=== PATIENT | male | born 1985 | race Caucasian/White ===

== ENCOUNTER 2016-11-13 16:34 | Emergency (ER) | payer MEDICAID ==
[~2016-11-13] VITALS: Wt 113.5 kg
[~2016-11-13 16:34] MED LIST: DIAZ-90 PO; HYDR-906 PO; [UNRECOGNIZED DRUG - CODE]
[2016-11-13] MEDS ORDERED: HYDROCODONE/APAP (5/325) TAB PO ONE (17:00)
--- NOTE | 2016-11-13 17:30 | RADRPT ---
PROCEDURE: XR Chest. CLINICAL INDICATION: Chest pain. TECHNIQUE: Single frontal view. COMPARISON: 08/27/2014. FINDINGS: The lungs are clear. The heart size is normal. There is no pleural effusion. There is no pneumothorax. IMPRESSION: 1. Normal chest radiograph. 2. No change from 08/27/2014. RPTAT: QQ .Indio Martin MD, MD Date Time Electronically viewed and signed by .Indio Martin MD, MD on 11/13/2016 17:30 .R/
[2016-11-13] MEDS ORDERED: AZIT250T94 PO (17:40)
[2016-11-13] MEDS ORDERED: HYDR-906 PO (17:40)
--- NOTE | 2016-11-13 17:45 | ERD ---
ER Documentation Chief Complaint Date/Time DATE: 11/13/16 TIME: 17:43 Chief Complaint cough w cwp, nausea HPI This 31-year-old male presents with cough and left-sided chest wall pain with coughing and moving for the last 3-4 days. He has productive sputum. He has some mild nausea. Denies any sustained anterior chest pain. He has additional multiple complaints of numbness in his left foot and some intermittent numbness of left hand as well. Denies any weakness. Denies any blood, abdominal pain. ROS All systems reviewed and are negative except as per history of present illness. Medications Home Meds Active Scripts Azithromycin* (Zithromax*) 250 Mg Tablet, 250 MG PO .ZPACK DIRECTED, #6 TAB TAKE 500 MG (2 TABS) THE FIRST DAY THEN 250 MG (1 TAB) DAYS 2-5 Prov:KAROLYN OSWALD MD 11/13/16 Hydrocodone/Acetaminophen ([place] 5-325 Tablet) 1 Each Tablet, 1 EACH PO QID, # 10 TAB Prov:KAROLYN OSWALD MD 11/13/16 Diazepam* (Valium*) 5 Mg Tablet, 5 MG PO Q8, #10 TAB Prov:STONEY PAZ 04/08/16 Hydrocodone/Acetaminophen ([place] 5-325 Tablet) 1 Each Tablet, 1 TAB PO Q6H Y for PAIN, #20 TAB Prov:STONEY PAZ 04/08/16 Reported Medications Acetaminophen/Caffeine (Excedrin Asa Free Caplet) 1 Tab Tablet 12/29/10 Allergies Allergies: Coded Allergies: ibuprofen (Verified Allergy, Severe, 04/08/16) morphine (Verified Allergy, Unknown, tongue swollen, 04/08/16) PMhx/Soc History of Surgery: No Anesthesia Reaction: No Hx Neurological Disorder: No Hx Respiratory Disorders: No Hx Cardiac Disorders: No Hx Psychiatric Problems: No Hx Miscellaneous Medical Probl: Yes (MIGRAINE) Hx Alcohol Use: No Hx Substance Use: No Hx Tobacco Use: Yes Smoking Status: Current every day smoker Physical Exam Vitals Vital Signs Date Time Temp Pulse Resp B/P Pulse Ox O2 Delivery O2 Flow Rate FiO2 11/13/16 16:40 99.1 94 20 136/89 99 Physical Exam Const: [] Alert, [id number]. Head: Atraumatic Eyes: Normal Conjunctiva ENT: Normal External Ears, Nose and Mouth. TMs and oropharynx normal. Neck: Full range of motion..~ No meningismus. Resp: Clear to auscultation bilaterally. Tenderness in the left chest wall area without crepitance or skin changes. No rales or wheezing appreciated. Cardio: Regular rate and rhythm, no murmurs Abd: Soft, non tender, non distended. Normal bowel sounds Skin: No petechiae or rashes Back: No midline or flank tenderness Ext: No cyanosis, or edema Neur: Awake and alert Psych: Normal Mood and Affect Results 24 hrs Current Medications Medications (Trade) Dose Ordered Sig/Graciela Route PRN Reason Start Time Stop Time Status Last Admin Dose Admin Acetaminophen/ Hydrocodone Bitart ([place] (5/325)) 1 tab ONCE ONCE PO 11/13/16 17:00 11/13/16 17:02 DC 11/13/16 17:05 Procedures/MDM Chest X-ray 1V Interpreted by me: Soft Tissue: No acute abnormalities Bones: No acute abnormalities Mediastinum/Cardiac Silhouette/Lungs: [No acute abnormalities]. Impression- normal 1 view chest x-ray EKG: Rate/Rhythm: [Normal Sinus Rhythm] rate equals 84 QRS, ST, T-waves: [No changes consistent w/ acute ischemia] Impression: [No evidence of ischemia or arrhythmia]. Impression-normal EKG Patient presents with appears to be pleuritic chest wall pain with coughing or URI symptoms. Given the productive cough he will be treated with Zithromax, short course of [place]. Patient shows no signs or symptoms to suggest acute coronary syndrome, pulmonary embolism, acute abdomen, additional emergent causes of patient's presenting complaints. The patient was stable with no new complaints during the ER course. Clinically, there is no current evidence to suggest meningitis, sepsis, acute abdomen, pneumonia, acute coronary syndrome, pulmonary embolism, or any other emergent condition appearing to require further evaluation or hospitalization. The patient should certainly return for any new or worsening symptoms per the aftercare instructions. They should otherwise follow-up with her primary care doctor for reevaluation this week. Departure Diagnosis: Primary Impression: URI, acute Additional Impression: Strain of chest wall Encounter type: initial encounter Qualified Code: S29.011A - Strain of chest wall, initial encounter Condition: Stable Patient Instructions: Acute Bronchitis, Chest Wall Strain Additional Instructions: Examinations normal today. Recheck for new or worsening symptoms with primary care doctor. KAROLYN OSWALD MD Nov 13, 2016 17:45
== END 2016-11-13 17:55 | disposition home or self-care (01) ==
LOC: FTE 16:34
DX: J06.9 Acute upper respiratory infection, unspecified (principal); S29.011A Strain of muscle and tendon of front wall of thorax, initial encounter; F17.210 Nicotine dependence, cigarettes, uncomplicated; X58.XXXA Exposure to other specified factors, initial encounter; Y92.9 Unspecified place or not applicable
CPT/HCPCS: 71010; 93005; Z7610

== ENCOUNTER 2017-05-15 21:20 | Emergency (ER) | payer MEDICAID ==
[~2017-05-15] VITALS: Ht 175.3 cm; Wt 110.5 kg
[~2017-05-15 21:20] MED LIST changes: +AZIT250T94 PO
[2017-05-15 21:24] VITALS: Ht 175.3 cm; Wt 110.5 kg
--- NOTE | 2017-05-15 23:29 | ERD ---
ER Documentation Chief Complaint Date/Time DATE: 05/15/17 TIME: 23:27 Chief Complaint back injury in numbness in L arm and leg on and off for 2 years HPI This 32-year-old male patient presents to emergency department with lumbar back pain after jumping on trampoline at [employer], denies alliteration or bladder, patient also has an unrelated complaint of intermitted chest pain over the last year, this chest pain is left sided, denies HTN, Hyperlipidemia, DM, family Hx of heart attact. 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 Medications Home Meds Active Scripts Diazepam* (Valium*) 5 Mg Tablet, 5 MG PO Q8, #10 TAB Prov:NORTH,SAMMY 05/16/17 Naproxen* (Naprosyn*) 500 Mg Tablet, 500 MG PO BID Y for PAIN AND/OR INFLAMMATION, #20 TAB Prov:NORTH,SAMMY 05/16/17 Azithromycin* (Zithromax*) 250 Mg Tablet, 250 MG PO .ZPACK DIRECTED, #6 TAB TAKE 500 MG (2 TABS) THE FIRST DAY THEN 250 MG (1 TAB) DAYS 2-5 Prov:KAROLYN OSWALD MD 11/13/16 Hydrocodone/Acetaminophen ([place] 5-325 Tablet) 1 Each Tablet, 1 EACH PO QID, # 10 TAB Prov:KAROLYN OSWALD MD 11/13/16 Diazepam* (Valium*) 5 Mg Tablet, 5 MG PO Q8, #10 TAB Prov:STONEY PAZ 04/08/16 Hydrocodone/Acetaminophen ([place] 5-325 Tablet) 1 Each Tablet, 1 TAB PO Q6H Y for PAIN, #20 TAB Prov:STONEY PAZ 04/08/16 Reported Medications Acetaminophen/Caffeine (Excedrin Asa Free Caplet) 1 Tab Tablet 12/29/10 Allergies Allergies: Coded Allergies: ibuprofen (Verified Allergy, Severe, 04/08/16) morphine (Verified Allergy, Unknown, tongue swollen, 04/08/16) PMhx/Soc History of Surgery: No Anesthesia Reaction: No Hx Neurological Disorder: No Hx Respiratory Disorders: No Hx Cardiac Disorders: No Hx Psychiatric Problems: No Hx Miscellaneous Medical Probl: Yes (MIGRAINE) Hx Alcohol Use: No Hx Substance Use: No Hx Tobacco Use: Yes Physical Exam Vitals Vital Signs Date Time Temp Pulse Resp B/P Pulse Ox O2 Delivery O2 Flow Rate FiO2 05/15/17 21:24 99.0 100 18 128/80 99 Vitals stable, triage notes reviewed Physical Exam Const: Well-nourished well-hydrated well-appearing male patient no acute distress Head: Eyes: ENT: Normal External Ears, Nose and Mouth. Neck: Full range of motion..~No JVD Resp: Clear to auscultation bilaterally no rales wheezes or rhonchi Cardio: S1-S2, no S3-S4 regular rate and rhythm, no murmurs Abd: Soft, non tender, no epigastric pain Skin: Back Exam: Skin: No bruising or rash Compartments: Soft Motor: Straight leg rises positive on left side at 40, pain bilaterally with abduction and abduction Sensation: Intact to light touch throughout Bones: No midline TTP Ext: No cyanosis, or edema Neur: Awake and alert Psych: Normal Mood and Affect Result Diagram: 05/15/170 05/15/172349 Results 24 hrs Laboratory Tests Test 05/15/17 23:50 White Blood Count 8.110^3/ul Red Blood Count 4.9110^6/ul Hemoglobin 14.7g/dl Hematocrit 41.9% Mean Corpuscular Volume 85.3fl Mean Corpuscular Hemoglobin 29.9pg Mean Corpuscular Hemoglobin Concent 35.1g/dl Red Cell Distribution Width 12.1% Platelet Count 46144^3/UL Mean Platelet Volume 9.6fl Neutrophils % 55.8% Lymphocytes % 27.0% Monocytes % 12.0% Eosinophils % 4.0% Basophils % 0.6% Nucleated Red Blood Cells % 0.0/100WBC Neutrophils # 4.510^3/ul Lymphocytes # 2.210^3/ul Monocytes # 1.010^3/ul Eosinophils # 0.310^3/ul Basophils # 0.110^3/ul Nucleated Red Blood Cells # 0.010^3/ul Sodium Level 140mmol/L Potassium Level 3.6mmol/L Chloride Level 106mmol/L Carbon Dioxide Level 23mmol/L Anion Gap 15 Blood Urea Nitrogen 14mg/dl Creatinine 0.72mg/dl Glucose Level 128mg/dl Calcium Level 10.1mg/dl Total Bilirubin 0.2mg/dl Direct Bilirubin 0.00mg/dl Indirect Bilirubin 0.2mg/dl Aspartate Amino Transf (AST/SGOT) 53IU/L Alanine Aminotransferase (ALT/SGPT) 102IU/L Alkaline Phosphatase 76IU/L Troponin I < 0.012ng/ml Total Protein 8.3g/dl Albumin 4.3g/dl Globulin 4.00g/dl Albumin/Globulin Ratio 1.07 Lipase 68U/L Current Medications Medications (Trade) Dose Ordered Sig/Graciela Route PRN Reason Start Time Stop Time Status Last Admin Dose Admin Aspirin (Aspirin) 325 mg ONCE STAT PO 05/15/17 23:34 05/15/17 23:39 DC 05/15/17 23:57 Ketorolac Tromethamine (Toradol) 15 mg ONCE STAT IV 05/15/17 23:34 05/15/17 23:39 DC 05/15/17 23:57 Diazepam (Valium) 5 mg ONCE ONCE PO 05/16/17 00:00 05/16/17 00:01 DC 05/15/17 23:57 Acetaminophen/ Hydrocodone Bitart ([place] (5/325)) 1 tab ONCE ONCE PO 05/16/17 01:00 05/16/17 01:05 DC 05/16/17 00:38 Interpretation text CBC shows no evidence of hemorrhage or infection Chemistry shows no evidence of significant electrolyte abnormalities or renal insufficiency Liver function tests shows no evidence of acute biliary or hepatic dysfunction Lipase shows no evidence of acute pancreatitis Cardiac biomarkers show no evidence of acute myocardial injury or coronary ischemia Procedures/MDM EKG read by Dr. Padgett Rate/Rhythm: Regular rate and rhythm at a rate of sinus rhythm with ventricular rate of 88 bpm Intervals: Normal Impression: No evidence of ischemia or arrhythmia PROCEDURE: XR Chest. CLINICAL INDICATION: Chest pain TECHNIQUE: PA and Lateral views of the chest were obtained. COMPARISON: 08/27/2014 FINDINGS: The cardiomediastinal silhouette is within normal limits. The lungs are clear. No signs of pleural fluid or pneumothorax are seen. The osseous structures and soft tissues are unremarkable. IMPRESSION: No evidence for active cardiopulmonary disease. Electronically viewed and signed by Physician Howie on 05/16/2017 02:00 This pleasant 32-year-old male patient presents to emergency department for evaluation of back pain which started after jumping on a trampoline with his kids, patient also has secondary complaint and related to back pain, reports chest pain 1 year, chest pain is on the left side radiating down his left arm, left chest, and left lower leg. Patient denies palpitations, shortness of breath, or dizziness, denies of hypertension, hyperlipidemia, diabetes, history of premature cardiac , patient notes lifestyle modifications, smokes 1 pack of cigarettes every 2 days. Patient denies nausea, vomiting, fever, or chills. Emergency room course includes history and physical exam, straight leg rises positive, I do not feel a lumbar x-ray is indicated at this time, laboratory testing, CBC, CMP, lipase, troponin all within normal limits, see dictation note. EKG normal sinus rhythm with a ventricular rate of 88 bpm no ectopy, chest x-ray urology impression no evidence for acute active cardiopulmonary disease, Valium, patient reassessed after 40 minutes reports that pain subsided in his back for a half an hour but has returned, [place] 5/325 given, patient reassessed after 30 minutes with improvement of low back pain. Plan to discharge patient home with Naprosyn 500 mg 1 tab p.o. twice daily 10 days, Valium 5 mg 1 tab p.o. hours as needed. Patient instructed to follow-up with primary care physician for further evaluation of chest pain, and referral to physical therapy located for back pain. Patient is stable with no new complaints during ER course, clinically there is no current evidence to suggest cauda equina, acute coronary syndromes, pulmonary embolism or any other emergent condition appearing to require further evaluation or hospitalization. I feel the patient is stable for discharge at this time. I have discussed results, examination findings, the treatment plan with the patient and family present prior to discharge. Indications for emergent reevaluation, side effects of medication were also discussed. All questions were answered. Patient verbalizes understanding and agrees with plan of care. Departure Diagnosis: Primary Impression: Lumbar strain Encounter type: initial encounter Qualified Code: S39.012A - Strain of lumbar region, initial encounter Additional Impression: Chest pain of uncertain etiology Condition: Good Patient Instructions: Chest Pain, Uncertain Cause, Self-Care for Low Back Pain Referrals: [facility] Additional Instructions: Thank you for for coming to [facility] for your care today. Please ask your nurse or provider if you have questions about your care today and do not leave until all your questions have been answered. Please use any medications given as directed and follow-up with your doctor (or the doctor you were referred to) in the next 2-3 days. If you do not have a primary care doctor you may follow up at the [facility] (listed below). You may also use motrin and tylenol as needed for fever and/or pain unless instructed otherwise by your provider or nurse. Indications for more urgent follow-up have been discussed, but you may return to the Emergency Department at ANY time for any worrisome or worsening symptoms. If you have abdominal pain, please know that no test or exam you received is perfect and you should follow up within 8 hours for continued pain. If you had any imaging studies today, such as an X-Ray or CT Scan, these studies will be reviewed later by a radiologist. You will be called if there are important findings that were not identified today, so make sure the contact information you provided at registration is correct. If you received any narcotic pain control medicine today, such as Vicodin, Morphine or Dilaudid, your coordination and judgment may be affected for a number of hours. Please do not drive or operate heavy machinery, and you may want someone to assist you at home. If you were given a prescription for narcotic medication, be aware that it is very addictive- use sparingly and only if necessary. SAMMY KAT May 15, 2017 23:29
[2017-05-15] MEDS ORDERED: KETOROLAC 15 MG INJ IV STA (23:34)
[2017-05-15] MEDS ORDERED: ASPIRIN 325 MG TAB PO STA (23:34)
[2017-05-16] MEDS ORDERED: DIAZEPAM 5 MG TAB PO ONE
[2017-05-16 00:28] LABS: BASOPHIL # 0.1 10^3/ul (0.0-0.1); BASOPHILS % 0.6 % (0.0-2.0); EOSINOPHILS # 0.3 10^3/ul (0.0-0.5); HEMATOCRIT 41.9 % (42.0-52.0); HEMOGLOBIN 14.7 g/dl (14.0-18.0); LYMPHOCYTES # 2.2 10^3/ul (0.8-2.9); MEAN CORPUSCULAR HEMOGLOBIN 29.9 pg (29.0-33.0); MEAN CORPUSCULAR HGB CONC 35.1 g/dl (32.0-37.0); MEAN CORPUSCULAR VOLUME 85.3 fl (82.0-101.0); MEAN PLATELET VOLUME 9.6 fl (7.4-10.4); NEUTROPHIL # 4.5 10^3/ul (1.6-7.5); NEUTROPHILS % 55.8 % (39.0-77.0); PLATELET COUNT 191 10^3/UL (140-415); RED BLOOD COUNT 4.91 10^6/ul (4.70-6.10); RED CELL DISTRIBUTION WIDTH 12.1 % (11.5-14.5); WHITE BLOOD COUNT 8.1 10^3/ul (4.8-10.8)
[2017-05-16 00:57] LABS: ALANINE AMINOTRANSFERASE 102 IU/L (13-69); ALBUMIN 4.3 g/dl (3.3-4.9); ALBUMIN/GLOBULIN RATIO 1.07; ALKALINE PHOSPHATASE 76 IU/L (42-121); ANION GAP 15 (8-16); ASPARTATE AMINO TRANSFERASE 53 IU/L (15-46); BILIRUBIN,INDIRECT 0.2 mg/dl (0-1.1); BILIRUBIN,TOTAL 0.2 mg/dl (0.2-1.3); BLOOD UREA NITROGEN 14 mg/dl (7-20); CALCIUM 10.1 mg/dl (8.4-10.2); CARBON DIOXIDE 23 mmol/L (21-31); CHLORIDE 106 mmol/L (97-110); CREATININE 0.72 mg/dl (0.61-1.24); GLUCOSE 128 mg/dl (70-220); POTASSIUM 3.6 mmol/L (3.5-5.1); SODIUM 140 mmol/L (135-144); TOTAL PROTEIN 8.3 g/dl (6.1-8.1)
[2017-05-16] MEDS ORDERED: HYDROCODONE/APAP (5/325) TAB PO ONE (01:00)
[2017-05-16 01:11] LABS: TROPONIN-I < 0.012 ng/ml (0.00-0.12)
[2017-05-16] MEDS ORDERED: DIAZ-90 PO (01:50)
[2017-05-16] MEDS ORDERED: NAPR-260 PO (01:50)
--- NOTE | 2017-05-16 02:00 | RADRPT ---
PROCEDURE: XR Chest. CLINICAL INDICATION: Chest pain TECHNIQUE: PA and Lateral views of the chest were obtained. COMPARISON: 08/27/2014 FINDINGS: The cardiomediastinal silhouette is within normal limits. The lungs are clear. No signs of pleural f luid or pneumothorax are seen. The osseous structures and soft tissues are unremarkable. IMPRESSION: No evidence for active cardiopulmonary disease. RPTAT: [facility] Physician Howie Date Time Electronically viewed and signed by Argelia Daniel Physician on 05/16/2017 02:00 RS/
[2017-05-16 02:25] VITALS: BP 123/68; PULSE 88; RESP 16
== END 2017-05-16 02:26 | disposition home or self-care (01) ==
LOC: FTE 21:20
DX: S39.012A Strain of muscle, fascia and tendon of lower back, initial encounter (principal); F17.210 Nicotine dependence, cigarettes, uncomplicated; S29.9XXA Unspecified injury of thorax, initial encounter; R07.9 Chest pain, unspecified; X58.XXXA Exposure to other specified factors, initial encounter; Y92.9 Unspecified place or not applicable
CPT/HCPCS: 36415; 71020; 80053; 83690; 84484; 85025; 93005; 96374; J1885; Z7502; Z7610

== ENCOUNTER 2018-01-22 01:48 | Emergency (ER) | END 2018-01-22 04:45 | disposition home or self-care (01) ==

== ENCOUNTER 2018-05-17 20:15 | Emergency (ER) | END 2018-05-18 00:14 | disposition home or self-care (01) ==